=== PATIENT | female | born 1970 | race Caucasian/White ===

== ENCOUNTER 2017-05-02 15:00 | Outpatient (CLI) | payer OTHER ==
--- NOTE | 2017-05-03 14:49 | Mammography Report ---
SCREENING MAMMOGRAM: 05/02/2017 CLINICAL INDICATION: A 46-year-old nulliparous patient with family history of breast cancer, history of benign biopsies for screening. COMPARISON: 02/2015, 12/2013, 11/2012, 02/2011, 10/2010, 10/2009. TECHNIQUE: Routine CC and MLO projections were obtained of the breasts. Bilateral laterally exaggerated cranial caudal views. FINDINGS: The breasts again demonstrate heterogeneously dense fibroglandular parenchyma bilaterally. Punctate, typically benign calcifications are present, no suspicious masses, clustered microcalcifications, or regions of architectural distortion are identified. IMPRESSION: BENIGN FINDINGS. RECOMMENDATIONS: ROUTINE ANNUAL SCREENING UNLESS OTHERWISE CLINICALLY INDICATED. BIRADS CATEGORY 2 - BENIGN FINDINGS. STANDARD QUALIFYING STATEMENTS 1. This examination was reviewed with the aid of Computer-Aided Detection (CAD). 2. A negative or benign imaging report should not delay biopsy if clinically suspicious findings are present. Consider surgical consultation if warranted. More than 5% of cancers are not identified by imaging. 3. Dense breasts may obscure an underlying neoplasm. TD: 05/03/2017 14:20
== END 2017-05-02 15:01 | disposition home or self-care (01) ==
LOC: DI 15:00
PROVIDERS: ATTEND Obstetrics & Gynecology
DX: Z12.31 Encounter for screening mammogram for malignant neoplasm of breast (principal); Z80.3 Family history of malignant neoplasm of breast
CPT/HCPCS: 77067

== ENCOUNTER 2018-01-08 16:24 | Outpatient (CLI) | payer OTHER ==
[2018-01-08 16:59] LABS: HGB - HEMOGLOBIN 13.8 g/dL (12.0-16.0); MEAN CORPUSCULAR HEMOGLOBIN 32.3 pg (27.0-31.0); MEAN CORPUSCULAR HGB CONC 34.3 g/dL (32.0-36.0); MEAN CORPUSCULAR VOLUME 94.2 fL (81.0-99.0); MEAN PLATELET VOLUME 7.1 fL (7.9-10.8); RED BLOOD COUNT 4.29 10^6/uL (4.20-5.40); RED CELL DISTRIBUTION WIDTH 12.3 % (12.0-15.0); WHITE BLOOD COUNT 5.7 x10^3/uL (4.8-10.8)
[2018-01-08 17:59] LABS: BILIRUBIN,URINE NEGATIVE (NEGATIVE); GLUCOSE, URINE (UA) NEGATIVE (NEGATIVE); KETONES,URINE (UA) NEGATIVE (NEGATIVE); LEUKOCYTE ESTERASE, URINE NEGATIVE (NEGATIVE); NITRITE,URINE NEGATIVE (NEGATIVE); OCCULT BLOOD,URINE NEGATIVE (NEGATIVE); PROTEIN,URINE NEGATIVE (NEGATIVE); UROBILINOGEN,URINE 0.2 (NORMAL) E.U./dL (NORMAL)
[2018-01-08 18:10] LABS: CLARITY,URINE CLEAR (CLEAR); RBC,URINE None Seen /HPF (0-5); SQUAMOUS EPITHELIAL CELL,UR FEW Squamous (<= Few)
[2018-01-08 18:11] LABS: BACTERIA,URINE None Seen /HPF (None Seen)
== END 2018-01-08 16:25 | disposition home or self-care (01) ==
LOC: LAB 16:24
PROVIDERS: ATTEND Obstetrics & Gynecology
DX: R19.03 Right lower quadrant abdominal swelling, mass and lump (principal)
CPT/HCPCS: 36415; 81001; 85027; 85651; 86304

== ENCOUNTER 2018-01-16 18:52 | Outpatient (CLI) | payer OTHER ==
--- NOTE | 2018-01-17 09:41 | Ultrasound Report ---
Reason: RLQ ABDOMINAL SWELLING, MASS LUMP Procedure Date: 01/16/2018 Accession Number: [id number] / [id number] Procedure: US - Pelvic w/Transvaginal CPT Code: FULL RESULT: EXAM: PELVIC ULTRASOUND EXAM DATE: 01/16/2018 07:45 PM. CLINICAL HISTORY: Right lower quadrant pain. History of left oophorectomy. COMPARISON: Pelvic w/transvaginal 01/26/2016 3:25 PM. TECHNIQUE: Realtime transabdominal pelvic scan performed to identify the uterus and adnexa and as an overview of other pelvic structures, followed by transvaginal scan to provide greater detail of the uterus and adnexa, with static image documentation. FINDINGS: Uterus: 8.7 x 6.2 x 4.9 cm, volume 137 cc. Anteverted position. Normal overall size and echotexture. Masses: None. Endometrium: 12 mm. Normal. Cervix: Unremarkable. Right Ovary: 4.3 x 2.7 x 2.3 cm, volume 14 cc. Small physiologic cysts are seen in the ovary. Normal echotexture and blood flow. Left Ovary: Not visualized, presumably surgically absent based on given history. No adnexal abnormality demonstrated. Free Fluid: None. Other: None. IMPRESSION: Negative pelvic ultrasound exam status post left oophorectomy. RADIA
== END 2018-01-16 18:53 | disposition home or self-care (01) ==
LOC: DI 18:52
PROVIDERS: ATTEND Obstetrics & Gynecology
DX: R19.03 Right lower quadrant abdominal swelling, mass and lump (principal); Z90.721 Acquired absence of ovaries, unilateral
CPT/HCPCS: 76830; 76856

== ENCOUNTER 2018-05-23 14:57 | Outpatient (CLI) | payer OTHER ==
--- NOTE | 2018-05-24 05:25 | Ultrasound Report ---
Reason: ENDOMETRIOSIS Procedure Date: 05/23/2018 Accession Number: [id number] / [id number] Procedure: US - Pelvic w/Transvaginal CPT Code: FULL RESULT: EXAM: PELVIC ULTRASOUND EXAM DATE: 05/23/2018 04:33 PM. CLINICAL HISTORY: Endometriosis. COMPARISON: PELVIC W/TRANSVAGINAL 01/16/2018 7:09 PM. TECHNIQUE: Real-time transabdominal pelvic scan performed to identify the uterus and adnexa and as an overview of other pelvic structures, followed by transvaginal scan to provide greater detail of the uterus and adnexa, with static image documentation. FINDINGS: Uterus: 8.7 x 4.6 x 5.0 cm, volume 104.6 cc. Anteverted position. Normal overall size and echotexture. Masses: None. Endometrium: 6.3 mm. Normal. Cervix: Unremarkable. Right Ovary: 3.9 x 2.2 x 3.0 cm, volume 13.5 cc. Normal echotexture and blood flow. Left Ovary: Removed. No left adnexal masses seen. Free Fluid: None. Other: None. IMPRESSION: Negative pelvic ultrasound post left oophorectomy. RADIA
== END 2018-05-23 14:58 | disposition home or self-care (01) ==
LOC: DI 14:57
PROVIDERS: ATTEND Obstetrics & Gynecology
DX: N80.9 Endometriosis, unspecified (principal); Z90.721 Acquired absence of ovaries, unilateral
CPT/HCPCS: 76830; 76856

== ENCOUNTER 2018-06-06 14:56 | Outpatient (CLI) | payer OTHER ==
[2018-06-06 19:35] LABS: CA 125 21.6 U/mL (0.0-35.0)
[2018-06-06 19:39] LABS: THYROID STIMULATING HORMONE 1.61 uIU/mL (0.34-5.60)
[2018-06-06 19:43] LABS: FERRITIN 82.6 ng/mL (11.0-306.8)
[2018-06-06 20:07] LABS: FOLLICLE STIMULATING HORMONE 58.8 mIU/mL
[2018-06-06 20:12] LABS: % IRON SATURATION 29 % (20-50); IRON 90 ug/dL (28-170); TOTAL IRON BINDING CAPACITY 308 ug/dL (250-450); TRANSFERRIN 220 mg/dL (192-382)
== END 2018-06-06 23:59 | disposition home or self-care (01) ==
LOC: LAB.N 14:56
PROVIDERS: ATTEND Obstetrics & Gynecology
DX: N91.2 Amenorrhea, unspecified (principal); D64.9 Anemia, unspecified; R97.1 Elevated cancer antigen 125 [CA 125]
CPT/HCPCS: 36415; 82670; 82728; 83001; 83540; 84443; 84466; 86304

== ENCOUNTER 2018-07-08 09:47 | Day surgery (SDC) | payer OTHER ==
[2018-07-08] MEDS ORDERED: LACTATED RINGERS 1,000 ML IV ONE (10:09)
[2018-07-08] MEDS ORDERED: MIDAZOLAM 2 MG/2 ML VIAL IVP ONE (10:26)
[2018-07-08] MEDS ORDERED: fentaNYL 250 MCG/5 ML VIAL IVP ONE (10:26)
[2018-07-08 11:18] VITALS: BP 94/49
== END 2018-07-08 09:48 | disposition home or self-care (01) ==
LOC: SDS 09:47
PROVIDERS: ATTEND Surgery
PROC: 0DJD8ZZ Inspection of Lower Intestinal Tract, Via Natural or Artificial Opening Endoscopic (ICD-10-PCS; principal; 2018-07-08 11:15)
DX: Z12.11 Encounter for screening for malignant neoplasm of colon (principal); K64.8 Other hemorrhoids
CPT/HCPCS: 45378; J3010; J7120

== ENCOUNTER 2021-03-16 11:38 | Outpatient (CLI) | payer OTHER | END 2021-03-16 11:39 | disposition critical access hospital (66) | LOC: EMS 11:38 | DX: S01.81XA Laceration without foreign body of other part of head, initial encounter (principal); R41.0 Disorientation, unspecified; S80.01XA Contusion of right knee, initial encounter; V13.4XXA Pedal cycle driver injured in collision with car, pick-up truck or van in traffic accident, initial encounter; Y93.55 Activity, bike riding; Y92.414 Local residential or business street as the place of occurrence of the external cause | CPT/HCPCS: A0425; A0429 ==

== ENCOUNTER 2021-05-17 08:00 | Outpatient (CLI) | payer OTHER ==
[2021-05-17 20:42] LABS: BACTERIAL VAGINOSIS DNA NEGATIVE (NEGATIVE); CANDIDA GLABRATA DNA NEGATIVE (NEGATIVE); CANDIDA GROUP DNA NEGATIVE (NEGATIVE); CANDIDA KRUSEI DNA NEGATIVE (NEGATIVE); TRICHOMONAS VAGINALIS DNA NEGATIVE (NEGATIVE)
== END 2021-05-17 23:59 ==
LOC: LAB 08:00
PROVIDERS: ATTEND Obstetrics & Gynecology
DX: N89.8 Other specified noninflammatory disorders of vagina (principal)
CPT/HCPCS: 87661; 87801

== ENCOUNTER 2021-05-26 13:58 | Outpatient (CLI) | payer OTHER ==
--- NOTE | 2021-05-26 16:05 | Ultrasound Report ---
PROCEDURE: Pelvic w/Transvaginal INDICATIONS: POST MENOPAUSAL BLEEDING TECHNIQUE: Real-time scanning was performed of the pelvic organs, with image documentation. Additional endovagi nal scanning was necessary due to incomplete visualization of the adnexal and endometrial structures by transabdominal scanning. COMPARISON: May 23, 2018 FINDINGS: UTERUS: Coarsened echotexture with heterogeneous echogenicity. Anteverted, measuring 9.4 x 6.2 x 7.7 cm. The endometrial thickness measures 7.9 mm. An ovoid hypoechoic lesion is seen in the posterior aspect of the uterus, measuring 2 x 1.2 x 1.5 cm, most consistent with a intramural fibroid. An additional ovoid hypoechoic lesion is seen in the right aspect of the uterus, measuring 5.3 x 4.3 x 5.8 cm, also consistent with a intramural fibroid. Subcentimeter hypoechoic lesions are seen in the myometrium, measuring up to 5.5 mm. Hypoechoic lesions in the cervix, compatible with nabothian cysts. RIGHT OVARY: 4.2 x 1.5 x 2.4 cm. Color-flow projects over the ovarian tissue. LEFT OVARY: Reported surgically absent. OTHER: None. IMPRESSION: 1.Myomatous change of uterus. 2.Subcentimeter cystic areas within the myometrium, which may reflect adenomyosis. Reviewed by: Yousuf Ramachandran MD on 05/26/2021 4:04 PM PST Approved by: Yousuf Ramachandran MD on 05/26/2021 4:04 PM PST Station ID: [id number]
== END 2021-05-26 13:59 | disposition home or self-care (01) ==
LOC: DI 13:58
PROVIDERS: ATTEND Obstetrics & Gynecology
DX: N95.0 Postmenopausal bleeding (principal); R93.89 Abnormal findings on diagnostic imaging of other specified body structures

== ENCOUNTER 2021-07-05 08:19 | Day surgery (SDC) | payer OTHER ==
[~2021-07-05 08:19] MED LIST: BUPIVACAINE 0.25% PF 10 ML VIAL ONE; LIDOCAINE 2%-EPI 1:100000 20 ML MDV ONE; SILVER NITRATE APPLICATOR TOP ONE
[2021-07-05] MEDS ORDERED: LACTATED RINGERS 1,000 ML IV ONE ×2 (08:26→10:17)
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
--- NOTE | 2021-07-05 09:22 | ANESTHESIA ---
Pre-Anesthesia VS, & Labs - Diagnosis postmenopausal bleeding - Procedure hysteroscopy, D & C Vital Signs: Temp Pulse Resp BP Pulse Ox 36.6 C 69 11 L 90/63 97 07/05/21 08:33 07/05/21 08:33 07/05/21 08:33 07/05/21 08:33 07/05/21 08:33 Height: 5 ft 3 in Weight (kg): 55.7 kg Body Mass Index: 21.7 BMI Classification: Healthy weight - NPO >8 hours - Is Patient ?: No Home Medications and Allergies Home Medications: Ambulatory Orders Escitalopram [Lexapro] 10 mg PO DAILY 06/28/21 buPROPion [Wellbutrin Xl] 150 mg PO DAILY 06/28/21 Escitalopram [Lexapro] 10 mg PO DAILY 06/28/21 buPROPion [Wellbutrin Xl] 150 mg PO DAILY 06/28/21 Allergies/Adverse Reactions: Allergies Allergy/AdvReac Type Severity Reaction Status Date / Time ketamine AdvReac Hallucinati Verified 07/05/21 08:42 ons Anes History & Medical History - Anesthetic History Anesthesia Complications: reports: No previous complications - Medical History Cardiovascular: reports: None Pulmonary: reports: None Gastrointestinal: reports: None Urinary: reports: None Musculoskeletal: reports: None Endocrine/Autoimmune: reports: None Skin: reports: None Smoking Status: Never smoker History of Cancer?: No - Surgical History Gynecologic: reports: Tubal ligation, Oophrectomy Exam General: Alert, Oriented x3 Mouth Opening: Greater than 4 Fingerbreadths Neck Mobility: Normal Mallampati classification: III Thyromental Distance: greater than 6 cm Respiratory: Lungs clear Cardiovascular: Regular rate, Normal S1, Normal S2 Plan Anesthesia Type: General Consent for Procedure(s) Verified and Reviewed: Yes Code Status: Attempt Resuscitation ASA classification: 2-Mild systemic disease Is this case an emergency?: No
[2021-07-05] MEDS ORDERED: ONDANSETRON 4 MG/2 ML VIAL ONE (09:41)
[2021-07-05] MEDS ORDERED: DEXAMETHASONE 4 MG/ML VIAL ONE (09:41)
[2021-07-05] MEDS ORDERED: fentaNYL 100 MCG/2 ML VIAL ONE (09:41)
[2021-07-05] MEDS ORDERED: LIDOCAINE-MPF 2% 5 ML VIAL ONE (09:41)
[2021-07-05] MEDS ORDERED: PROPOFOL 200 MG/20 ML VIAL IVP ONE (09:41)
[2021-07-05] MEDS ORDERED: MIDAZOLAM 2 MG/2 ML VIAL ONE (09:41)
[2021-07-05] MEDS ORDERED: MORPHINE 2 MG/ML CARPUJECT IVP PRN (09:44)
[2021-07-05] MEDS ORDERED: ATROPINE ABBOJECT 1 MG/10 ML SYRINGE IVP PRN (09:44)
[2021-07-05] MEDS ORDERED: HYDROmorphone 0.5 MG/0.5 ML SYRINGE IVP PRN (09:44)
[2021-07-05] MEDS ORDERED: NALOXONE 0.4 MG/ML VIAL IVP PRN (09:44)
[2021-07-05] MEDS ORDERED: ONDANSETRON 4 MG/2 ML VIAL IVP PRN (09:44)
[2021-07-05] MEDS ORDERED: ePHEDrine 50 MG/ML VIAL IVP PRN (09:44)
[2021-07-05] MEDS ORDERED: fentaNYL 100 MCG/2 ML VIAL IVP PRN (09:44)
[2021-07-05] MEDS ORDERED: BUPIVACAINE 0.25% PF 10 ML VIAL SUBQ ONE (09:55)
[2021-07-05] MEDS ORDERED: LIDOCAINE 2%-EPI 1:100000 20 ML MDV SUBQ ONE (09:56)
[2021-07-05] MEDS ORDERED: LACTATED RINGERS 1,000 ML IV SCH (10:00)
[2021-07-05] MEDS ORDERED: KETOROLAC 30 MG/ML VIAL ONE (10:03)
--- NOTE | 2021-07-05 10:24 | OPERATIVE REPORT ---
Operative Report - General Procedure Date: 07/05/21 Planned Procedure: Hysteroscopy D&C Pre-Op Diagnosis: Postmenopausal bleeding Procedure Performed: Hysteroscopy with MyoSure D&C. Post Op Diagnosis: Postmenopausal bleeding - Procedure Note Primary Surgeon: Dakota Nunez MD Anesthesia Provider: Sixto Dupree CRNA Anesthesia Technique: General ET tube Pathology: Endometrial curettings IV Fluids (mL): 400 Estimated Blood Loss (mL): 5 Urine Output (mL): 20 Complications: None - Other Other Information/Narrative: Prior to the procedure, patient was counseled the risk, benefits, alternatives of hysteroscopy D&C. Discussed risk of bleeding, infection, perforation. If the uterus was perforated, we will likely not be able to proceed with the procedure as the uterus would likely not hold distention medium. We discussed that due to her thickened endometrium and postmenopausal bleeding, some sort of endometrial sampling was in her best interest as we are not able to do this in office, surgery was preferable. Patient agreed to proceed with the procedure. Patient was taken to the procedure room and placed in dorsal lithotomy position. Hibiclens was used to clean the operative area. [place] speculum was palced in the vagina and the cervix was visualized. The anterior lip the cervix was grasped with a single-tooth tenaculum. The cervix was non-stenotic and allowed the easy passage of dilators. Hysteroscope was then used to hydrodilate using normal saline distention media. Hysteroscope was advanced without difficulty using hydrodistention. Cervical canal was noted to have a cervical polyp. Upon entry into the internal cervical os there was noted to be some fluffy, proliferative-appearing endometrium within the uterus. There was what looked like a uterine polyp at the left upper corner. The MyoSure device was then used to shave off the polypoid lesion and sample several areas of endometrium. Bilateral tubal ostia were noted. The cervical polyp was then removed. Hysteroscope was then removed. Sharp curette was then performed. Tenaculum was then removed from the cervix noted to be hemostatic. All instruments removed from the vagina Fluid deficit 65 mL.
[2021-07-05] MEDS ORDERED: HYDROcod/ACETAM 10 MG/325 MG TABLET PO PRN (10:26)
[2021-07-05] MEDS ORDERED: HYDROcod/ACETAM 5/325 MG TABLET ONE (11:02)
[2021-07-05 11:47] VITALS: BP 111/50
--- NOTE | 2021-07-05 13:15 | ANESTHESIA POST OP EVALUATION ---
Anesthesia Post Eval - Post Anesthesia Eval Vitals: Last Vital Signs Temp 36.5 C 07/05/21 11:45 Pulse 65 07/05/21 11:45 Resp 16 07/05/21 11:45 BP 111/50 L 07/05/21 11:45 Pulse Ox 100 07/05/21 11:45 CV Function Including HR & BP: Stable Pain Control: Satisfactory Nausea & Vomiting: Negative Mental Status: Baseline Respiratory Status: Airway Patent Hydration Status: Satisfactory Anesthesia Complications: None
== END 2021-07-05 08:20 | disposition home or self-care (01) ==
LOC: SDS 08:19
PROVIDERS: ATTEND Obstetrics & Gynecology
PROC: 0UB98ZZ Excision of Uterus, Via Natural or Artificial Opening Endoscopic (ICD-10-PCS; 2021-07-05)
PROC: 0UDB7ZZ Extraction of Endometrium, Via Natural or Artificial Opening (ICD-10-PCS; 2021-07-05)
PROC: 0UBC8ZZ Excision of Cervix, Via Natural or Artificial Opening Endoscopic (ICD-10-PCS; principal; 2021-07-05 09:30)
DX: N95.0 Postmenopausal bleeding (principal); N84.1 Polyp of cervix uteri; N84.0 Polyp of corpus uteri
CPT/HCPCS: 36415; 58558; 86850; 86900; 86901; A9270; J7120; 85025

== ENCOUNTER 2021-08-06 00:02 | Emergency (ER) | payer OTHER ==
[2021-08-06 00:13] VITALS: BP 131/88
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
--- OUTSIDE RECORDS SUMMARY | 2021-08-06 00:49 | EXTERNAL MEDICAL SUMMARY RPT | Continuity of Care Document ---
:1970 Author Organization [facility] Address [address] [place] [address] Phone Care Team Providers Name Role Phone Bylund Unavailable Unavailable Allergies No information. Encounters No information. Medications No information. Problems date description facility [id number] Laceration of right quadriceps muscle, fascia and [facility] tendon, in Results No information.
[2021-08-06] MEDS ORDERED: CLINDAMYCIN 150 MG CAPSULE PO STA (00:51)
[2021-08-06] MEDS ORDERED: oxyCODONE/ACET 5/325 Prepack 4 PO STA (00:59)
== END 2021-08-06 01:15 | disposition home or self-care (01) ==
LOC: ED 00:02
DX: L03.011 Cellulitis of right finger (principal)
CPT/HCPCS: 99282